=== PATIENT | female | born 1945 | race Caucasian/White ===

== ENCOUNTER 2017-01-31 20:01 | Emergency (ER) | payer OTHER ==
[2017-01-31 20:18] VITALS: BMI 41.0
--- NOTE | 2017-01-31 21:04 | PDOC ---
History of Present Illness - General History Source: Patient Exam Limitations: No Limitations - History of Present Illness Initial Comments: 01/31/17 21:52 The patient is a 71 year old female, with a significant past medical history of hypertension, hyperlipidemia, diabetes(diet controlled), and sleep apnea, who presents to the emergency department with dizziness since approximately 17:00. The patient reports she began to feel dizzy and describes it as if the room were spinning. The patient reports associated nausea and 2 episodes of vomiting( nonbloody/nonbilious). The patient reports her dizziness is exacerbated with movement or with standing. Patient states she was admitted to the hospital in the past with similar symptoms, where they discontinued her Amlodipine due to hypotension, but was started on her meds again several years ago. Patient endorses mild headache, located in her occipital scalp, which she describes as a pressure. She reports taking Tylenol for the pain with relief of symptoms, but now reports mild neck pain. Patient denies any head trauma, LOC, changes in vision, back pain, weakness, paresthesias, or changes in balance. She denies any chest pain, shortness of breath, diaphoresis, or palpitations. She denies any fever, chills, or joint aches. She denies any recent travel, stressors, or sick contacts. Allergies: NKDA Past Surgical History: Right knee replacement, Carpal tunnel Social History: Non smoker. No ETOH or recreational drug use. <Carlos León - Last Filed: 01/31/17 21:52> <Shena Root - Last Filed: 02/01/17 02:04> - General Chief Complaint: Lightheaded Stated Complaint: DIZZINESS Time Seen by Provider: 01/31/17 20:04 Past History <Carlos León - Last Filed: 01/31/17 21:52> - Past Medical History Anemia: No Asthma: No Cancer: No Cardiac Disorders: No CVA: No COPD: No CHF: No Dementia: No Diabetes: Yes (DIET CONNTROLLED) GI Disorders: No Disorders: No HTN: Yes Hypercholesterolemia: Yes Liver Disease: No Seizures: No Thyroid Disease: No - Surgical History Abdominal Surgery: No Appendectomy: No Cardiac Surgery: No Cholecystectomy: No Lung Surgery: No Neurologic Surgery: No Orthopedic Surgery: Yes (fred KNEE MOLINA) - Suicide/Smoking/Psychosocial Hx Smoking History: Never smoked Have you smoked in the past 12 months: No Information on smoking cessation initiated: No Hx Alcohol Use: No Drug/Substance Use Hx: No Substance Use Type: None Hx Substance Use Treatment: No <Shena Root - Last Filed: 02/01/17 02:04> - Past Medical History Allergies/Adverse Reactions: Allergies Allergy/AdvReac Type Severity Reaction Status Date / Time No Known Drug Allergies Allergy Mild Vomiting Verified 01/31/17 20:04 SHRIMP Allergy Intermediate Vomiting Uncoded 01/31/17 20:12 Home Medications: Ambulatory Orders Atorvastatin Ca [Lipitor] 20 mg PO HS 03/20/14 Amlodipine Besylate [Norvasc -] 5 mg PO DAILY 05/07/14 Furosemide [Lasix -] 20 mg PO BID 05/16/14 Meclizine HCl [Antivert -] 25 mg PO TID PRN #20 tablet 01/31/17 Review of Systems - Review of Systems Able to Perform ROS?: Yes Comments:: 01/31/17 21:52 CONSTITUTIONAL: Absent: fever, no chills, no fatigue EYES: Absent: visual changes ENT: Absent: ear pain, no sore throat CARDIOVASCULAR: Absent: chest pain, no palpitations RESPIRATORY: Absent: cough, no SOB GI: Absent: abdominal pain, no nausea, no vomiting, no constipation, no diarrhea GENITOURINARY: Absent: dysuria, no frequency, no hematuria MUSKULOSKELETAL: Absent: back pain, no arthralgia, no myalgia SKIN: Absent: rash NEURO: Present: headache, dizziness, vertigo Absent: lightheadedness, focal weakness or paresthesias, unsteady gait, seizure , mental status changes, bladder or bowel incontinence <Carlos León - Last Filed: 01/31/17 21:52> *Physical Exam - Vital Signs Last Vital Signs Temp Pulse Resp BP Pulse Ox 97.8 F 86 20 143/64 99 01/31/17 20:02 01/31/17 20:02 01/31/17 20:02 01/31/17 20:02 01/31/17 20:02 - Physical Exam Comments: 01/31/17 21:53 GENERAL: The patient is awake, alert, and fully oriented, in no acute distress. HEAD: Normal with no signs of trauma. EYES: Pupils equal, round and reactive to light, extraocular movements intact, sclera anicteric, conjunctiva clear with no pallor. No nystagmus. ENT: Ears normal, nares patent, oropharynx clear without exudates. Moist mucous membranes. NECK: Normal range of motion, supple without lymphadenopathy, JVD, or masses. LUNGS: Breath sounds equal, clear to auscultation bilaterally. No wheeze/ crackles. HEART: Regular rate and rhythm, normal S1 and S2 without murmur or rub. ABDOMEN: Soft/nontender/nondistended. BS wnl. No guarding or rebound. No palpable masses. No hepatosplenomegaly. EXTREMITIES: Normal range of motion, no edema. No clubbing or cyanosis. No cords, erythema, or tenderness. NEUROLOGICAL: Subjective vertigo was induced by change from supine to upright position. Cranial nerves II through XII grossly intact. Normal speech. PSYCH: Normal mood, normal affect. SKIN: Warm, Dry, normal turgor, no rashes or lesions noted. <Carlos León - Last Filed: 01/31/17 21:52> - Vital Signs Last Vital Signs Temp Pulse Resp BP Pulse Ox 97.8 F 86 20 143/64 99 01/31/17 20:02 01/31/17 20:02 01/31/17 20:02 01/31/17 20:02 01/31/17 20:02 <Shena Root - Last Filed: 02/01/17 02:04> ED Treatment Course - LABORATORY CBC & Chemistry Diagram: 01/31/17 22:12 01/31/17 22:12 <Shena Root - Last Filed: 02/01/17 02:04> Medical Decision Making - Medical Decision Making Documentation has been prepared under my direction and personally reviewed by me in its entirety. I attest that this documented accurately reflects all work, treatment, procedures and medical decision making performed by me. As noted above, this 71-year-old woman (history of DM/HTN/HLD) presents with "dizziness" with change in position, accompanied by nausea and 2 episodes of vomiting today. Last night, she had headache/pressure feeling in the occipital area of her head. Pain resolved after 2 hours. No further headache noted today. Patient has a previous history of the dizziness a few years ago ( [facility] No previous history of positional vertigo. Patient had recent viral illness (sore throat and nonproductive cough; now resolved) Exam as noted. Patient had reproduction of her symptoms when arising to upright position from a supine position. 12-lead electrocardiogram performed and interpreted by me: Normal sinus rhythm at 79 bpm; axis, intervals and wave forms are all normal. No evidence of acute ST or T-wave evident. No evidence of arrhythmia. Laboratory evaluation including cardiac enzymes showed no significant abnormality except for mild hypokalemia (3.3 mmol per liter) and relative prerenal azotemia with BUN of 14 and creatinine 0.7. Troponin is not elevated. Because of the patient's history of occipital headache and dizziness/vertigo with nausea and vomiting, noncontrast head CT was performed to evaluate for acute intracranial pathology. No evidence of acute intracranial pathology found on noncontrast head CT. Patient given meclizine 25 mg by mouth empirically. Prescription for 25 mg 3 times a day as needed (#20) transmitted to her pharmacy. Patient states that she will follow-up with her ENT doctor at [facility] tomorrow. Meanwhile, she should return to the ER if she has any worsening of her symptoms. <Shena Root - Last Filed: 02/01/17 02:04> *DC/Admit/Observation/Transfer - Attestations Scribe Attestion: 01/31/17 21:53 Documentation prepared by Carlos León, acting as medical equipment technician for Shena Root MD. <Carlos León - Last Filed: 01/31/17 21:52> <Shena Root - Last Filed: 02/01/17 02:04> Diagnosis at time of Disposition: Vertigo - Discharge Dispostion Disposition: HOME Condition at time of disposition: Stable - Prescriptions Prescriptions: Meclizine HCl [Antivert -] 25 mg PO TID PRN #20 tablet PRN Reason: Vertigo - Patient Instructions Printed Discharge Instructions: DI for Benign Paroxysmal Positional Vertigo Additional Instructions: Try to drink plenty of fluids Include high potassium foods in your diet as discussed continue medications as prescribed Follow-up with your ENT doctor tomorrow, especially if symptoms persist Return to ER if you have severe lightheadedness or weakness
[2017-01-31 22:26] LABS: BASOPHIL 0.3 % (0-2.0); EOSINOPHIL 1.9 % (0-4.5); MCH 28.3 pg (25.7-33.7); MCHC 32.2 g/dl (32.0-36.0); MEAN CELL VOLUME 88.1 fl (80-96); MEAN PLT VOLUME 10.2 fl (7.5-11.1); NEUTROPHILS 66.9 % (42.8-82.8); PLATELET COUNT 246 K/MM3 (134-434); RDW 12.5 % (11.6-15.6); WHITE BLOOD COUNT 10.6 K/mm3 (4.0-10.8)
[2017-01-31 22:33] LABS: INR 0.95 (0.82-1.09); PROTHROMBIN TIME (PATIENT) 10.6 SEC (10.2-13.0)
[2017-01-31 22:39] LABS: ALBUMIN 4.6 g/dl (3.5-5.0); ALK PHOS 76 U/L (32-92); ANION GAP 9 (8-16); BILIRUBIN,TOTAL 0.7 mg/dl (0.2-1.0); CALCIUM 9.6 mg/dl (8.4-10.2); CO2 29 mmol/L (22-28); CPK 87 IU/L (26-192); CREATININE 0.7 mg/dl (0.6-1.3); GLUCOSE,RANDOM 127 mg/dl (74-106); SGOT/AST 23 U/L (10-42); SGPT/ALT 18 U/L (10-40); TOT PROT 7.7 g/dl (6.4-8.3)
[2017-01-31 22:59] LABS: TROPONIN I (DFP) < 0.03 ng/ml (0.03-0.50)
[2017-01-31] MEDS ORDERED: MECLIZINE HCL 25 MG TABLET (FP) ONE (23:22)
[2017-01-31] MEDS ORDERED: MECLIZINE HCL 25 MG TABLET (FP) PO ONE (23:26)
[2017-01-31 23:33] VITALS: BP 145/86; PULSE 78; TEMP 97.6
--- NOTE | 2017-02-03 11:19 | EKG ---
Test Reason : Blood Pressure : / mmHG Vent. Rate : 079 BPM Atrial Rate : 079 BPM P-R Int : 174 ms QRS Dur : 100 ms QT Int : 418 ms P-R-T Axes : 052 006 041 degrees QTc Int : 479 ms NORMAL SINUS RHYTHM NORMAL ECG WHEN COMPARED WITH ECG OF 07-MAY-2014 09:19, NO SIGNIFICANT CHANGE WAS FOUND Confirmed by HEATHER RAUSCH MD ([id number]) on 02/03/2017 11:18:47 AM Referred By: MD GUILLORY Confirmed By:HEATHER RAUSCH MD
== END 2017-01-31 23:41 | disposition home or self-care (01) ==
LOC: FER 20:01
DX: R42 Dizziness and giddiness (principal); I10 Essential (primary) hypertension; E78.5 Hyperlipidemia, unspecified; G47.30 Sleep apnea, unspecified
CPT/HCPCS: 36415; 70450-TC; 80053; 82550; 84484; 85025; 85610; 93005; 99282-25

== ENCOUNTER 2017-08-03 13:34 | Emergency (ER) | payer OTHER ==
--- NOTE | 2017-08-03 14:20 | PDOC ---
History of Present Illness - General Chief Complaint: Hematuria Stated Complaint: BLOOD IN URINE Time Seen by Provider: 08/03/17 14:01 - History of Present Illness Initial Comments: 08/03/17 16:27 The patient is a 72 year old female with past medical history of HTN, hyperlipidemia, diabetes, hypercholesterolemia and sleep apnea presents to the emergency department complaining of hematuria since morning. The patient reports passing bright red urine in the morning accompanied with dysuria. The patient states the urine was concentrated with blood. The patient reports voiding at 1:00 PM then again prior to the ED visit states it becomes more diluted with each passing. The patient reports associated symptoms of lower back pain. Denies trauma. The patient reports a history of non productive cough for the past 1 month, without relief. The patient reports daily use Aspirin 81 mg. Denies any prior similar incident. Denies frequency or urgency to urinate. Denies fever, chills. Chest pain or headache. Denies Nausea, vomiting, diarrhea or constipation. Allergies: NKDA Surgical history: Carpal Tunnel and right knee replacement. Social history: None reported PCP: Dr. Trent Nelson Past History - Past Medical History Allergies/Adverse Reactions: Allergies Allergy/AdvReac Type Severity Reaction Status Date / Time No Known Drug Allergies Allergy Mild Vomiting Verified 08/03/17 13:35 shrimp Allergy Verified 08/03/17 16:48 Home Medications: Ambulatory Orders Atorvastatin Ca [Lipitor] 20 mg PO HS 03/20/14 Amlodipine Besylate [Norvasc -] 5 mg PO DAILY 05/07/14 Furosemide [Lasix -] 20 mg PO BID 05/16/14 Ergocalciferol [Vitamin D2] 50,000 unit PO Q7D@1000 08/03/17 Metformin HCl [Glucophage] 500 mg PO BID 08/03/17 Ranitidine [Zantac -] 150 mg PO DAILY 08/03/17 Anemia: No Asthma: No Cancer: No Cardiac Disorders: No CVA: No COPD: No CHF: No Dementia: No Diabetes: Yes (DIET CONNTROLLED) GI Disorders: No Disorders: No HTN: Yes Hypercholesterolemia: Yes Liver Disease: No Seizures: No Thyroid Disease: No - Surgical History Abdominal Surgery: No Appendectomy: No Cardiac Surgery: No Cholecystectomy: No Lung Surgery: No Neurologic Surgery: No Orthopedic Surgery: Yes (fred KNEE MOLINA) - Suicide/Smoking/Psychosocial Hx Smoking History: Never smoked Have you smoked in the past 12 months: No Hx Alcohol Use: No Drug/Substance Use Hx: No Substance Use Type: None Hx Substance Use Treatment: No Review of Systems - Review of Systems Comments:: 08/03/17 16:28 GENERAL/CONSTITUTIONAL: No fever or chills. No weakness. HEAD, EYES, EARS, NOSE AND THROAT: No change in vision. No ear pain or discharge. No sore throat. GASTROINTESTINAL: No nausea, vomiting, diarrhea or constipation. GENITOURINARY: (+) dysuria and hematuria. No, frequency or urgency to urinate. CARDIOVASCULAR: No chest pain or shortness of breath. RESPIRATORY: (+) cough for the past 1 month. No wheezing, or hemoptysis. MUSCULOSKELETAL:(+) Lower back pain. No joint or muscle swelling or pain. No neck. SKIN: No rash NEUROLOGIC: No headache, vertigo, loss of consciousness, or change in strength/ sensation. ENDOCRINE: No increased thirst. No abnormal weight change. HEMATOLOGIC/LYMPHATIC: No anemia, easy bleeding, or history of blood clots. ALLERGIC/IMMUNOLOGIC: No hives or skin allergy. *Physical Exam - Physical Exam Comments: 08/03/17 16:28 GENERAL: Awake, alert, and fully oriented, in no acute distress HEAD: No signs of trauma EYES: PERRLA, EOMI, sclera anicteric, conjunctiva clear ENT: Auricles normal inspection, hearing grossly normal, nares patent, oropharynx clear without exudates. Moist mucosa NECK: Normal ROM, supple, no lymphadenopathy, JVD, or masses LUNGS: Breath sounds equal, clear to auscultation bilaterally. No wheezes, and no crackles HEART: Regular rate and rhythm, normal S1 and S2, no murmurs, rubs or gallops ABDOMEN: (+) Superpubic tenderness to palpation. Soft, normoactive bowel sounds. No guarding, no rebound. No masses or CVA tenderness. EXTREMITIES: Normal range of motion, no edema. No clubbing or cyanosis. No cords, erythema, or tenderness BACK: No midline spinal tenderness in cervical/thoracic/lumbar region NEUROLOGICAL: Normal speech, cranial nerves intact, negative pronator drift, 5/ 5 strength in all 4 extremities, normal sensation to light touch in all 4 extremities, normal cerebellar exam, normal gait, normal reflexes and tone SKIN: Warm, Dry, normal turgor, no rashes or lesions noted. ED Treatment Course - LABORATORY CBC & Chemistry Diagram: 08/03/17 16:00 08/03/17 16:00 Medical Decision Making - Medical Decision Making 08/03/17 14:15 72yo F hx HTN, HL, NIDDM, on ASA 81mg presents to the ED c/o hematuria and dysuria since this morning. Also reports suprapubic and low back pain. Vitals wnl. Will check UA and reassess 08/03/17 16:28 UA with many res, 2+LE, many whites and bacteria. Case discussed with her PMD Dr. Nelson, he recommends labs, US, and obs admission given hematuria. Will obtain work up and reassess pt. 08/03/17 17:38 US with mild R hydro, possible stone? Pt states urine completely clear now. CTAP ordered K found to be 2.8, given 80meq PO KCl, will repeat 08/03/17 18:35 CTAP with no renal colic, hydro or acute abd/pelvic pathology. Pt offered admission for hypokalemia, and hematuria, however, she does not want to stay overnight as she has a new grandson and her son is having surgery. The patient is clinically sober, free from distracting injury, appears to have intact insight and judgment and reason and in my opinion has the capacity to make decisions. I explained to her that her potassium was low to 2.8 and we would need to repeat the labs to see if it has improved with Kdur but she declines rpt labs. I explained to her that hypokalemia can cause abnormal heart rhythms, loss of consiousness, disability, or even . She expresses understanding of my concerns and will f/u with Dr. Leslie MILNER. She also states she will eat more banana's and avocado. I also re-iterated that Dr. Nelson wanted her admitted for her hematuria, but she states she has made an appointment with urologist Curry Cummins tomorrow for f/u. I will treat her UTI with keflex. I have told the patient that her hematuria could be a sign of infection, or something more scary like cancer but she prefers to follow up with her specialist tomorrow. I have discussed these concerns with the patient s granddaughter who is at the bedside and she is unable to convince her to stay for further evaluation. She is unwilling to stay overnight for monitoring. She is refusing any further care and is leaving against medical advice. I am unable to convince the patient to stay, I have asked her to return as soon as possible to complete their evaluation. I have spoken with coverage for their primary care doctor in regards to their workup. I have answered all their questions. *DC/Admit/Observation/Transfer Diagnosis at time of Disposition: UTI (urinary tract infection), Hematuria, Hypokalemia - Discharge Dispostion Disposition: AGAINST MEDICAL ADVICE Condition at time of disposition: Stable Decision to Admit order: No - Referrals Referrals: Trent Nelson MD [Primary Care Provider] - - Patient Instructions Printed Discharge Instructions: DI for Hypokalemia, DI for Hematuria, DI for Urinary Tract Infection (UTI) Additional Instructions: You are leaving the hospital against medical advice. This puts you at risk for abnormal heart rhythm, recurrent bloody urine, permanent disability, or . Your potassium was very low and will need to be rechecked as soon as possible. Furthermore, we do not know why you were had the blood in the urine. While it looks like you have an infection, Dr. Nelson and myself recommended an overnight stay to make sure the blood in the urine was not a sign of something worse. Follow up with Dr. Nelson as soon as possible. Return as soon as possible to complete your evaluation. - Post Discharge Activity - Attestations Physician Attestion: 08/03/17 18:47 I, Dr. Keith Alejandro MD, attest that this document has been prepared under my direction and personally reviewed by me in its entirety. I further attest, that it accurately reflects all work, treatment, procedures and medical decision -making performed by me.
[2017-08-03 14:21] VITALS: TEMP 98.4; BMI 34.7
[2017-08-03 14:33] LABS: PH,URINE 5.5 (4.5-8); URINE BILIRUBIN Negative (NEGATIVE); URINE GLUCOSE (UA) Negative (NEGATIVE); URINE KETONE Negative (NEGATIVE); URINE NITRITE Negative (NEGATIVE); URINE UROBILINOGEN 0.2 (0.2-1.0)
[2017-08-03 14:34] LABS: URINE APPEARANCE CLOUDY; URINE BLOOD 3+ (NEGATIVE); URINE COLOR PINK; URINE LEUK ESTERASE 2+ (NEGATIVE); URINE PROTEIN 2+ (NEGATIVE)
[2017-08-03 14:44] LABS: URINE RBC >100 /hpf (0-3)
[2017-08-03 14:45] LABS: EPI CELLS MODERATE /HPF; URINE BACTERIA MANY /hpf (NEGATIVE); URINE WBC 30-50 (0-5)
[2017-08-03 16:20] LABS: BASO % 0.3 % (0-2.0); EOS % 2.2 % (0-4.5); HEMATOCRIT 35.2 % (32.4-45.2); HEMOGLOBIN 12.2 GM/dl (10.7-15.3); LYMPH % 24.3 % (8-40); MCH 30.7 pg (25.7-33.7); MCHC 34.6 g/dl (32.0-36.0); MEAN CELL VOLUME 88.8 fl (80-96); MEAN PLT VOLUME 8.9 fl (7.5-11.1); MONO % 5.6 % (3.8-10.2); NEUT % 67.6 % (42.8-82.8); PLATELET COUNT 267 K/MM3 (134-434); RBC 3.96 M/mm3 (3.60-5.2); WHITE BLOOD COUNT 10.6 K/mm3 (4.0-10.8)
[2017-08-03 16:33] LABS: ALBUMIN 4.1 g/dl (3.5-5.0); ALK PHOS 54 U/L (32-92); ANION GAP 6 (8-16); BILIRUBIN,TOTAL 0.6 mg/dl (0.2-1.0); BLOOD UREA NITROGEN 13 mg/dl (7-18); CALCIUM 9.1 mg/dl (8.4-10.2); CHLORIDE 99 mmol/L (98-107); CO2 28 mmol/L (22-28); GLUCOSE,RANDOM 116 mg/dl (74-106); SGOT/AST 32 U/L (10-42); SGPT/ALT 19 U/L (10-40); SODIUM 133 mmol/L (136-145); TOT PROT 6.8 g/dl (6.4-8.3)
[2017-08-03 16:35] LABS: CREATININE < 0.8 mg/dl (0.6-1.3)
[2017-08-03 16:36] LABS: POTASSIUM 2.7 mmol/L (3.5-5.1)
[2017-08-03] MEDS ORDERED: POTASSIUM CHLORIDE ORAL LIQUID 20 MEQ/15 ML PO ONE (16:42)
[2017-08-03] MEDS ORDERED: POTASSIUM CHLORIDE ORAL LIQUID 20 MEQ/15 ML ONE (16:43)
[2017-08-03 18:43] VITALS: BP 155/89; PULSE 89
[2017-08-03] MEDS ORDERED: CEPHALEXIN MONOHYDRATE 500 MG CAPSULE (UD) ONE (18:45)
[2017-08-03] MEDS ORDERED: CEPHALEXIN MONOHYDRATE 500 MG CAPSULE (UD) PO ONE (18:48)
== END 2017-08-03 18:50 | disposition left against medical advice (07) ==
LOC: FER 13:34
DX: N39.0 Urinary tract infection, site not specified (principal); R31.9 Hematuria, unspecified; E87.6 Hypokalemia
CPT/HCPCS: 36415; 74176-TC; 76775-TC; 80053; 81003; 81015; 85025; 87086; 87186; 99283-25

== ENCOUNTER 2017-09-14 10:57 | Day surgery (SDC) | payer OTHER ==
[2017-09-13 17:23] VITALS: BMI 35.9
[2017-09-14] MEDS ORDERED: LIDOCAINE HCL 1%, 10 MG/ML (20ML VIAL) ONE (12:42)
[2017-09-14] MEDS ORDERED: BUPIVACAINE HCL/PF 0.5% (5MG/ML) 10 ML VIAL ONE (12:42)
[2017-09-14] MEDS ORDERED: MIDAZOLAM HCL 2 MG/2 ML SINGLE DOSE VIAL ONE (12:47)
[2017-09-14] MEDS ORDERED: PROPOFOL 20 ML ONE (12:47)
[2017-09-14] MEDS ORDERED: ceFAZolin SODIUM 1 GM VIAL ONE (13:08)
[2017-09-14] MEDS ORDERED: LIDOCAINE HCL 1%, 10 MG/ML (20ML VIAL) INF ONE (13:17)
[2017-09-14] MEDS ORDERED: BUPIVACAINE HCL/PF (5 MG/ML) 30 ML VIAL IJ ONE (13:17)
--- NOTE | 2017-09-14 13:42 | OP ---
Operative Note - Note: Operative Date: 09/14/17 Pre-Operative Diagnosis: soft tissue mass LLE Operation: excision soft tissue mass LLE Findings: soft tissue mass ~ 4 cm. x 3 x 2 ; ? fat necrosis vs. other Surgeon: Ray Mary Compliance Coordinator: Attila Douglas Anesthesiologist/MACHINE SEWER: Gamaliel Thrasher Anesthesia: Local Specimens Removed: mass Estimated Blood Loss (mls): 5
[2017-09-14] MEDS ORDERED: ACETAMINOPHEN 325 MG TABLET (FP) PO PRN (13:56)
[2017-09-14] MEDS ORDERED: ONDANSETRON 4 MG/2 ML VIAL IVPUSH PRN (13:56)
--- NOTE | 2017-09-14 13:56 | SURG ---
Surgery Rehab Office Coordinator Note Rehab Office Coordinator: Attila Douglas PA-C Date of Service: 09/14/17 Diagnosis: Left leg soft tissue mass Procedure: Excision of Left leg mass I was present for the entirety of the operative procedure. For further detail, please refer to operative report.
[2017-09-14] MEDS ORDERED: LACTATED RINGERS SOLUTION 1,000 ML IV SCH (14:00)
[2017-09-14 14:32] VITALS: TEMP 98.5
[2017-09-14 16:33] VITALS: BP 122/64; PULSE 63
--- NOTE | 2017-09-15 11:50 | OP ---
DATE OF OPERATION: 09/14/2017 PREOPERATIVE DIAGNOSIS: Soft tissue mass, left lower extremity, pending final diagnosis. POSTOPERATIVE DIAGNOSIS: Soft tissue mass, left lower extremity, pending final diagnosis. PROCEDURE: Excision soft tissue mass, left lower extremity. SURGEON: Ray Mary MD PHARMACY DIRECTOR: Attila Douglas PA-C ANESTHESIA: Local with IV sedation. OPERATIVE FINDINGS: There was a soft tissue mass over the mid tibia measuring approximately 4 x 3 x 2 cm. It was well delineated and firm and partially cystic. It was attached to the anterior fascia of the tibia and the rest of the findings were unremarkable. DESCRIPTION OF PROCEDURE: The patient was placed on the operating table in the supine position, and the left lower extremity was prepped with ChloraPrep and draped in sterile fashion. A time-out was taken. An incision was mapped out over the mass, and the area was infiltrated with 1% Xylocaine and 0.5% Marcaine in equal concentration. An incision was made with a scalpel and taken down through skin and subcutaneous tissue, and the mass identified. Using blunt and sharp dissection, the mass was mobilized circumferentially. Its deep attachment to the anterior tibial fascia was identified, clamped, and divided, and the mass sent for pathological examination. The pedicle was ligated with 2- 0 Vicryl suture. Irrigation was carried out, and hemostasis secured with electrocautery. The wound was then closed in layers reapproximating the defect in the anterior tibial fascia with interrupted 2-0 Vicryl, the deep dermis with interrupted 3-0 Vicryl, and the skin edges with 4-0 nylon vertical mattress sutures. Dry sterile dressings, a Jono, and an SHELLY bandage were placed, and the procedure terminated at this point, and the patient transferred to the post-anesthesia care unit in stable condition, awake and alert. ESTIMATED BLOOD LOSS: Minimal. DRAINS: None. SPECIMENS: Soft tissue mass to Pathology. I, Ray Mary, was physically present in the operating room from the time the patient was placed on the operating table until she was transferred to the post-anesthesia care unit in my accompaniment. MD RAY Kent/[id number] MTDD
--- NOTE | 2017-09-18 17:27 | PATH ---
Surgical Pathology Report Patient Name: KOKI WHITMORE [facility]. Rec. #: [id number] /Age/Gender: 1945 (Age: 72) / F Account: [id number] Location: [facility] Taken: 09/14/2017 Received: 09/15/2017 Reported: 09/18/2017 Physicians: Ray Mary MD Specimen(s) Received SOFT TISSUE MASS Clinical History Soft tissue mass left lower leg post trauma by history Final Diagnosis LOWER LEG, LEFT, SOFT TISSUE MASS, EXCISION: ORGANIZED FAT NECROSIS WITH ASSOCIATED DYSTROPHIC CALCIFICATION. Electronically Signed Rosaura Cunningham M.D. Gross Description Received in formalin labeled "soft tissue mass left lower leg," is a 4.3 x 2.6 x 1.2 cm payne-yellow, unoriented portion of firm fibroadipose tissue. The specimen is inked blue and serially sectioned. Sectioning reveals diffuse fat necrosis. Coordinate Measuring Machine Operator sections are submitted in 2 cassettes. /09/15/2017 saudi/09/15/2017
== END 2017-09-14 16:00 | disposition home or self-care (01) ==
LOC: JASU-SURG 10:57
PROVIDERS: ATTEND Surgery
PROC: 0JBP0ZZ Excision of Left Lower Leg Subcutaneous Tissue and Fascia, Open Approach (ICD-10-PCS; principal; 2017-09-14 12:30)
DX: D21.22 Benign neoplasm of connective and other soft tissue of left lower limb, including hip (principal); E11.9 Type 2 diabetes mellitus without complications; Z79.84 Long term (current) use of oral hypoglycemic drugs; I10 Essential (primary) hypertension
CPT/HCPCS: 82962; 88305-TC; 94760

== ENCOUNTER 2018-01-25 12:43 | Day surgery (SDC) | payer OTHER ==
[2018-01-23 13:52] VITALS: BMI 36.8
[2018-01-25] MEDS ORDERED: VASOPRESSIN 20 UNITS/ML VIAL IV ONE (12:53)
[2018-01-25] MEDS ORDERED: PROPOFOL 20 ML ONE (14:14)
[2018-01-25] MEDS ORDERED: MIDAZOLAM HCL 2 MG/2 ML SINGLE DOSE VIAL ONE (14:14)
[2018-01-25] MEDS ORDERED: LIDOCAINE HCL/PF 2% SDV 5ML VIAL ONE (14:15)
[2018-01-25] MEDS ORDERED: ceFAZolin SODIUM 1 GM VIAL ONE (14:21)
[2018-01-25] MEDS ORDERED: SODIUM CHLORIDE 0.9% P/F 10 ML VIAL IJ ONE (14:21)
--- NOTE | 2018-01-25 14:26 | HP ---
Satellite [facility] - Chief Complaint Chief Complaint: stress incontinence, cystocele History of Present Illness: 72 year old woman with bladder prolapse and stress urinary incontinence History Source: Patient Limitations to Obtaining History: No Limitations - Past Medical History Allergies/Adverse Reactions: Allergies Allergy/AdvReac Type Severity Reaction Status Date / Time No Known Drug Allergies Allergy Mild Vomiting Verified 09/14/17 11:37 shrimp Allergy Verified 09/14/17 11:37 Cardiovascular: Yes: HTN Renal/: Yes: UTI Musculoskeletal: Yes: Osteoarthritis - Current Medications Current Medications: Home Medications Medication Instructions Recorded Atorvastatin Ca [Lipitor] 20 mg PO HS 03/20/14 Amlodipine Besylate [Norvasc -] 5 mg PO DAILY 05/07/14 Ergocalciferol [Vitamin D2] 50,000 unit PO Q7D@1000 08/03/17 Metformin HCl [Glucophage] 500 mg PO BID 08/03/17 Ranitidine [Zantac -] 150 mg PO BID 08/03/17 Aspirin [Aspirin EC] 81 mg PO DAILY 09/13/17 Ca/D3/Mag Ox/Zinc/Battery Technician/Pancho/Bor 1 each PO BID 09/13/17 [Calcium 600+D3 Plus Caplet] Lutz-3/Dha/Epa/Fish Oil [Fish Oil 1 each PO DAILY 09/13/17 500 mg Softgel] Satellite Physical Exam - Physical Examination Vital Signs: Vital Signs Period Temp Pulse Resp BP Sys/Tran Pulse Ox Last 24 Hr 97.6 F 67 20 115/70 100 General Appearance: Well Nourished, Well Developed, Alert & Oriented x3 ENT: Clear Lung: Clear to auscultation Heart: Regular rate & rhythm Abdomen: Soft, No tenderness, Normal bowel sounds Extremities: No edema, No tenderness/swelling Pelvic Exam: Other External Genitalia (cystocele and hypermobile urethra) Neurological: Intact Satellite Impression/Plan - Impression/Plan Impression: cystocele and stress urinary incontinence Operative Procedure: cystocele repair and suburethral sling placement Date to be Performed: 01/25/18
[2018-01-25] MEDS ORDERED: ACETAMINOPHEN 1000 MG/100 ML VIAL (NON FORMULARY) IVPB ONE (14:27)
[2018-01-25] MEDS ORDERED: ceFAZolin SODIUM 1 GM VIAL IVPB ONE (14:30)
[2018-01-25] MEDS ORDERED: DEXAMETHASONE SOD PHOSPHATE 4 MG/1 ML VIAL ONE (14:33)
[2018-01-25] MEDS ORDERED: KETOROLAC TROMETHAMINE 30 MG/1 ML VIAL ONE (15:10)
[2018-01-25] MEDS ORDERED: PROMETHAZINE HCL 25 MG/1 ML VIAL IVPB PRN (15:33)
[2018-01-25] MEDS ORDERED: ONDANSETRON 4 MG/2 ML VIAL IVPUSH PRN (15:33)
[2018-01-25] MEDS ORDERED: LACTATED RINGERS SOLUTION 1,000 ML IV SCH (15:45)
[2018-01-25] MEDS ORDERED: ACETAMINOPHEN INJECTION 100 ML IVPB ONE (16:38)
[2018-01-25] MEDS: DEXTROSE 5%-0.45% SALINE 1,000 ML IV SCH (18:15)
[2018-01-25] MEDS: IBUPROFEN 800 MG/8 ML IJ IVPB SCH (22:13)
[2018-01-26] MEDS ORDERED: ceFAZolin SODIUM 1 GM VIAL ONE ×2 (01:08→08:54)
[2018-01-26] MEDS ORDERED: DEXTROSE 5%-WATER - 50 ML IVPB ONE ×2 (01:08→08:54)
[2018-01-26] MEDS: CEFAZOLIN 1 GM in DEXTROSE 5%-WATER - 50 ML IVPB SCH ×2 (01:13→09:58)
[2018-01-26] MEDS: IBUPROFEN 800 MG/8 ML IJ IVPB SCH (05:54)
[2018-01-26] MEDS: DEXTROSE 5%-0.45% SALINE 1,000 ML IV SCH (05:55)
[2018-01-26 06:03] VITALS: TEMP 97.4
[2018-01-26 06:56] LABS: BASO % 0.1 % (0-2.0); HEMATOCRIT 34.1 % (32.4-45.2); HEMOGLOBIN 10.8 GM/dL (10.7-15.3); LYMPH % 15.5 % (8-40); MCH 28.3 pg (25.7-33.7); MCHC 31.6 g/dl (32.0-36.0); MEAN CELL VOLUME 89.5 fl (80-96); MEAN PLT VOLUME 10.3 fl (7.5-11.1); MONO % 3.7 % (3.8-10.2); NEUT % 80.7 % (42.8-82.8); PLATELET COUNT 205 K/MM3 (134-434); RBC 3.81 M/mm3 (3.60-5.2); RDW 13.3 % (11.6-15.6); WHITE BLOOD COUNT 13.4 K/mm3 (4.0-10.0)
[2018-01-26 07:22] LABS: ANION GAP 9 MMOL/L (8-16); BLOOD UREA NITROGEN 13 mg/dL (7-18); CALCIUM 8.4 mg/dL (8.5-10.1); CHLORIDE 106 mmol/L (98-107); CO2 27 mmol/L (21-32); CREATININE 0.5 mg/dL (0.55-1.3); GLUCOSE,RANDOM 130 mg/dL (74-106); POTASSIUM 3.5 mmol/L (3.5-5.1); SODIUM 141 mmol/L (136-145)
--- NOTE | 2018-01-26 09:22 | PN ---
Progress Note (short form) - Note Progress Note: patient without complaints. [place] and vaginal packing removed,. discharge home
[2018-01-26 11:43] VITALS: BP 106/57; PULSE 67
--- NOTE | 2018-01-29 17:53 | PATH ---
Surgical Pathology Report Patient Name: KOKI WHITMORE [facility]. Rec. #: [id number] /Age/Gender: 1945 (Age: 72) / F Account: [id number] Location: [facility] Taken: 01/25/2018 Received: 01/26/2018 Reported: 01/29/2018 Physicians: Tj Pitt M.D. Specimen(s) Received ANTERIOR VAGINAL MUCOSA Clinical History Cystocele, female stress incontinence Final Diagnosis ANTERIOR VAGINAL MUCOSA, EXCISION: VAGINAL SQUAMOUS MUCOSA WITHOUT SIGNIFICANT PATHOLOGIC FINDINGS. Electronically Signed Rosaura Cunningham M.D. Gross Description Received in formalin labeled "anterior vaginal mucosa," are 2 payne, irregular portions of soft tissue, consistent with vaginal mucosa. The specimens measure 3.7 x 1.4 x 0.5 cm and 4.5 x 1.0 x 0.3 cm. Personal Financial Counselor sections are submitted in one cassette. 01/26/2018 saudi01/26/2018
--- NOTE | 2018-02-01 23:11 | OP ---
DATE OF OPERATION: 01/25/2018 PREOPERATIVE DIAGNOSIS: Stress urinary incontinence and female cystocele. POSTOPERATIVE DIAGNOSIS: Stress urinary incontinence and female cystocele. PROCEDURE: Repair and suburethral sling placement cystoscopy. SURGEON: Tj Pitt M.D. ESTIMATED BLOOD LOSS: 50 mL. DRAINS: Greene catheter. PREOPERATIVE INDICATION: The patient suffers from a grade 4 cystocele and grade 4 cystocele and hypermobile urethra with stress urinary incontinence. She comes for repair. DESCRIPTION OF PROCEDURE: The patient is brought to the OR, placed on the table in the supine position, given general anesthesia and IV antibiotics, and placed in the modified lithotomy position. The groin was prepped and draped sterilely. Timeout was performed. A Greene catheter was placed. The vaginal mucosa overlying the bladder was identified. Pitressin was injected along the midline. Incision was made in the vaginal mucosa overlying the cystocele. The vaginal mucosa was sharply dissected off the perivesical tissues in a lateral fashion. The excess vaginal mucosa was then excised. Both ventral and lateral defects were prepared. Using 3-0 Vicryl suture, the pursestring was done in the midline of the bladder to raise up the central defect. 2-0 Vicryl suture was then used and brought the lateral tissue together to effect a repair of the defect. Three sutures were used for this repair. Cystoscopy was then performed. No evidence of bladder perforation was noted . The vaginal mucosa was then closed with 2-0 Vicryl suture as well. The sling was then performed. Pitressin was injected over the mid portion of the urethra. There was incision made over the portion of the urethra and the perivesical tissue was sharply dissected off the vaginal mucosa in the lateral fashion. The bladder was emptied again. Using trocars, the sling was placed. It was a mini sling placed into the right and left obturator canal. This was done with fingertip control. Cystoscopy was performed. There was no evidence of perforation. Again, the bilaterally. The sling was then tightened appropriately, lying flat over the midportion of the urethra without tension. The tightening suture was removed. The vaginal mucosa was then closed with 2-0 Vicryl suture. Packing and Greene catheter left in place. The patient was woken up. TJ PITT M.D. [id number]
== END 2018-01-26 14:01 | disposition home or self-care (01) ==
LOC: JASU-SURG 12:43 → J4S 18:45 → JASU-SURG 01-26 14:01
PROVIDERS: ATTEND Urology
PROC: 0TSD0ZZ Reposition Urethra, Open Approach (ICD-10-PCS; principal; 2018-01-25 14:00)
DX: N39.3 Stress incontinence (female) (male) (principal); N81.10 Cystocele, unspecified; Z79.84 Long term (current) use of oral hypoglycemic drugs; G47.30 Sleep apnea, unspecified
CPT/HCPCS: 57288; C1771; 36415; 80048; 82962; 85025; 88302-TC; 94760; J0131

== ENCOUNTER 2021-01-14 06:49 | Day surgery (SDC) | payer OTHER ==
[2021-01-14 07:55] VITALS: BMI 31.3
[2021-01-14] MEDS ORDERED: MIDAZOLAM HCL 2 MG/2 ML SINGLE DOSE VIAL ONE ×2 (08:51→10:45)
[2021-01-14] MEDS ORDERED: BUPIVACAINE HCL/PF 0.5% (5 MG/ML) 30 ML VIAL IJ ONE (08:51)
[2021-01-14] MEDS ORDERED: ROPIVACAINE HCL 0.5% 30ML VIAL ONE (08:52)
[2021-01-14] MEDS ORDERED: PROPOFOL 20 ML ONE (10:45)
[2021-01-14] MEDS ORDERED: DEXAMETHASONE SOD PHOSPHATE 4 MG/1 ML VIAL ONE (10:50)
[2021-01-14] MEDS ORDERED: ONDANSETRON 4 MG/2 ML VIAL ONE (10:50)
[2021-01-14] MEDS ORDERED: ceFAZolin SODIUM 1 GM VIAL ONE (10:51)
[2021-01-14 13:09] VITALS: TEMP 97.8
[2021-01-14 13:35] VITALS: BP 135/74; PULSE 72
== END 2021-01-14 13:37 | disposition home or self-care (01) ==
LOC: FASU 06:49
PROVIDERS: ATTEND Orthopaedic Surgery
PROC: 0LB50ZZ Excision of Right Lower Arm and Wrist Tendon, Open Approach (ICD-10-PCS; 2021-01-14)
PROC: 0LR Tendons, Replacement (ICD-10-PCS; 2021-01-14)
PROC: 0LU507Z Supplement Right Lower Arm and Wrist Tendon with Autologous Tissue Substitute, Open Approach (ICD-10-PCS; principal; 2021-01-14 11:00)
DX: M18.11 Unilateral primary osteoarthritis of first carpometacarpal joint, right hand (principal)
CPT/HCPCS: 73130-TC-RT-FY; 82962; 94760

== ENCOUNTER 2022-03-04 04:10 | Day surgery (SDC) | payer OTHER ==
[2022-02-25 16:53] VITALS: BMI 36.8
[~2022-03-04 04:10] MED LIST: BUPIVACAINE HCL/PF 0.75% 10 ML VIAL PNB ONE; LIDOCAINE 1% P/F 10 MG/ML VIAL INF ONE
[2022-03-04] MEDS ORDERED: LIDOCAINE HCL/PF 1% SDV 5ML VIAL ONE (07:14)
[2022-03-04] MEDS ORDERED: BUPIVACAINE HCL/PF 0.75% 10 ML VIAL ONE ×2 (07:14→11:09)
[2022-03-04] MEDS ORDERED: LIDOCAINE 1% P/F 10 MG/ML VIAL INF ONE ×2 (11:25)
[2022-03-04] MEDS ORDERED: BUPIVACAINE HCL/PF 0.75% 10 ML VIAL PNB ONE ×2 (11:25)
[2022-03-04 12:17] VITALS: BP 142/68; PULSE 66; RESP 18; TEMP 98.7
== END 2022-03-04 12:00 | disposition home or self-care (01) ==
LOC: JASU-SURG 04:10
PROVIDERS: ATTEND Pain Medicine Pain Medicine
PROC: BR16YZZ Fluoroscopy of Lumbar Facet Joint(s) using Other Contrast (ICD-10-PCS; 2022-03-04)
PROC: 3E0T3BZ Introduction of Anesthetic Agent into Peripheral Nerves and Plexi, Percutaneous Approach (ICD-10-PCS; principal; 2022-03-04 10:15)
DX: M47.816 Spondylosis without myelopathy or radiculopathy, lumbar region (principal)
CPT/HCPCS: 76000-TC-FY

== ENCOUNTER 2022-03-22 04:23 | Day surgery (SDC) | payer OTHER ==
[2022-03-21 09:22] VITALS: BMI 38.0
[~2022-03-22 04:23] MED LIST changes: +BUPIVACAINE HCL/PF 0.75% 10 ML VIAL NR ONE; -BUPIVACAINE HCL/PF 0.75% 10 ML VIAL PNB ONE
[2022-03-22] MEDS ORDERED: BUPIVACAINE HCL/PF 0.75% 10 ML VIAL ONE (07:28)
[2022-03-22] MEDS ORDERED: LIDOCAINE HCL/PF 1% SDV 5ML VIAL ONE (07:28)
[2022-03-22] MEDS ORDERED: LIDOCAINE 1% P/F 10 MG/ML VIAL INF ONE (11:00)
[2022-03-22] MEDS ORDERED: BUPIVACAINE HCL/PF 0.75% 10 ML VIAL NR ONE (11:02)
[2022-03-22 13:01] VITALS: BP 123/62; PULSE 64; RESP 18; TEMP 97.7
== END 2022-03-22 11:25 | disposition home or self-care (01) ==
LOC: JASU-SURG 04:23
PROVIDERS: ATTEND Pain Medicine Pain Medicine
PROC: BR16YZZ Fluoroscopy of Lumbar Facet Joint(s) using Other Contrast (ICD-10-PCS; 2022-03-22)
PROC: 3E0T3BZ Introduction of Anesthetic Agent into Peripheral Nerves and Plexi, Percutaneous Approach (ICD-10-PCS; principal; 2022-03-22 10:00)
DX: M47.816 Spondylosis without myelopathy or radiculopathy, lumbar region (principal)
CPT/HCPCS: 76000-TC-FY

== ENCOUNTER 2022-04-15 04:11 | Day surgery (SDC) | payer OTHER ==
[2022-04-13 10:27] VITALS: BMI 33.5
[~2022-04-15 04:11] MED LIST changes: +DEXAMETHASONE SOD PHOSPHATE 10 MG/1 ML VIAL IVPUSH ONE; -LIDOCAINE 1% P/F 10 MG/ML VIAL INF ONE; +LIDOCAINE HCL/PF 2% SDV 5ML VIAL INF ONE
[2022-04-15] MEDS ORDERED: LIDOCAINE HCL/PF 2% SDV 5ML VIAL ONE (07:35)
[2022-04-15] MEDS ORDERED: LIDOCAINE HCL/PF 1% SDV 5ML VIAL ONE (07:35)
[2022-04-15] MEDS ORDERED: BUPIVACAINE HCL/PF 0.5% (5MG/ML) 10 ML VIAL ONE (07:35)
[2022-04-15] MEDS ORDERED: BUPIVACAINE HCL/PF 0.75% 10 ML VIAL ONE (07:35)
[2022-04-15] MEDS ORDERED: LIDOCAINE HCL 1% PRESERVATIVE FREE - 30ML VIAL IJ ONE (08:57)
[2022-04-15] MEDS ORDERED: LIDOCAINE HCL/PF 2% SDV 5ML VIAL INF ONE (09:16)
[2022-04-15] MEDS ORDERED: BUPIVACAINE HCL/PF 0.75% 10 ML VIAL NR ONE (09:24)
[2022-04-15] MEDS ORDERED: DEXAMETHASONE SOD PHOSPHATE 10 MG/1 ML VIAL IVPUSH ONE (09:24)
[2022-04-15 09:58] VITALS: BP 148/72; PULSE 64; RESP 20; TEMP 98.4
== END 2022-04-15 10:15 | disposition home or self-care (01) ==
LOC: JASU-SURG 04:11
PROVIDERS: ATTEND Pain Medicine Pain Medicine
PROC: 005Y3ZZ Destruction of Lumbar Spinal Cord, Percutaneous Approach (ICD-10-PCS; principal; 2022-04-15 09:00)
DX: M47.816 Spondylosis without myelopathy or radiculopathy, lumbar region (principal)
CPT/HCPCS: 76000-TC-FY; J1100

== ENCOUNTER 2022-05-17 05:16 | Day surgery (SDC) | payer OTHER ==
[2022-05-13 09:30] VITALS: BMI 38.0
[2022-05-17 10:59] VITALS: RESP 18; TEMP 97.8
[2022-05-17] MEDS ORDERED: LIDOCAINE HCL/PF 2% SDV 5ML VIAL ONE (11:32)
[2022-05-17] MEDS ORDERED: BUPIVACAINE HCL/PF 0.75% 10 ML VIAL PNB ONE (11:52)
[2022-05-17] MEDS ORDERED: DEXAMETHASONE SOD PHOSPHATE 10 MG/1 ML VIAL IVPUSH ONE (11:52)
[2022-05-17] MEDS ORDERED: LIDOCAINE 1% P/F 10 MG/ML VIAL PNB ONE (11:52)
[2022-05-17] MEDS ORDERED: LIDOCAINE HCL/PF 2% SDV 5ML VIAL PNB ONE (11:52)
[2022-05-17 13:22] VITALS: BP 135/69; PULSE 69
== END 2022-05-17 12:35 | disposition home or self-care (01) ==
LOC: JASU-SURG 05:16
PROVIDERS: ATTEND Pain Medicine Pain Medicine
PROC: 015B3ZZ Destruction of Lumbar Nerve, Percutaneous Approach (ICD-10-PCS; principal; 2022-05-17 12:00)
DX: M47.816 Spondylosis without myelopathy or radiculopathy, lumbar region (principal)
CPT/HCPCS: 76000-TC-FY; J1100

== ENCOUNTER → 2022-07-05 | Day surgery (SDC) | payer OTHER ==
[2022-07-01 15:34] VITALS: BMI 38.0
[~2022-07-05] MED LIST changes: +ACETAMINOPHEN 500 MG TABLET (FP) PO PRN; -BUPIVACAINE HCL/PF 0.75% 10 ML VIAL NR ONE; +DEXAMETHASONE SOD PHOSPHATE 10 MG/1 ML VIAL IM ONE; -DEXAMETHASONE SOD PHOSPHATE 10 MG/1 ML VIAL IVPUSH ONE; +DEXAMETHASONE SOD PHOSPHATE 10 MG/1 ML VIAL ONE; +DEXAMETHASONE SOD PHOSPHATE 4 MG/1 ML VIAL ONE; +IOHEXOL 180 MG/1 ML ML IJ ONE; +LIDOCAINE HCL 1% PRESERVATIVE FREE - 30ML VIAL IJ ONE; +LIDOCAINE HCL/PF 1% SDV 5ML VIAL ONE; -LIDOCAINE HCL/PF 2% SDV 5ML VIAL INF ONE
[2022-07-05 11:14] VITALS: TEMP 97.8
[2022-07-05 14:14] VITALS: BP 128/72; PULSE 68; RESP 17
== END | disposition home or self-care (01) ==
LOC: JASU-SURG 03:47
PROVIDERS: ATTEND Pain Medicine Pain Medicine
PROC: 3E0R3BZ Introduction of Anesthetic Agent into Spinal Canal, Percutaneous Approach (ICD-10-PCS; 2022-07-05)
PROC: 3E0R33Z Introduction of Anti-inflammatory into Spinal Canal, Percutaneous Approach (ICD-10-PCS; principal; 2022-07-05 12:45)
DX: M48.061 Spinal stenosis, lumbar region without neurogenic claudication (principal)
CPT/HCPCS: 76000-TC-FY; J1100

== ENCOUNTER 2022-11-08 05:24 | Day surgery (SDC) | payer OTHER ==
[2022-11-07 12:31] VITALS: BMI 42.8
[2022-11-08] MEDS ORDERED: LIDOCAINE HCL/PF 2% SDV 5ML VIAL ONE (07:21)
[2022-11-08] MEDS ORDERED: LIDOCAINE 1% P/F 10 MG/ML VIAL INF ONE (09:12)
[2022-11-08] MEDS ORDERED: IOHEXOL 180 MG/1 ML ML IJ ONE (09:14)
[2022-11-08] MEDS ORDERED: DEXAMETHASONE SOD PHOSPHATE 20 MG/5 ML VIAL IM ONE (09:14)
[2022-11-08 10:18] VITALS: BP 122/70; PULSE 66; RESP 20; TEMP 97.9
== END 2022-11-08 10:15 | disposition home or self-care (01) ==
LOC: JASU-SURG 05:24
PROVIDERS: ATTEND Pain Medicine Pain Medicine
PROC: 3E0R3BZ Introduction of Anesthetic Agent into Spinal Canal, Percutaneous Approach (ICD-10-PCS; 2022-11-08)
PROC: 3E0R33Z Introduction of Anti-inflammatory into Spinal Canal, Percutaneous Approach (ICD-10-PCS; principal; 2022-11-08 09:15)
DX: M48.061 Spinal stenosis, lumbar region without neurogenic claudication (principal); M54.16 Radiculopathy, lumbar region
CPT/HCPCS: 76000-TC-FY

== ENCOUNTER 2023-06-27 04:28 | Day surgery (SDC) | payer OTHER ==
[2023-06-22 12:10] VITALS: BMI 42.9
[2023-06-27 06:21] VITALS: RESP 18
[2023-06-27] MEDS ORDERED: LIDOCAINE HCL/PF 2% SDV 5ML VIAL ONE (07:03)
[2023-06-27] MEDS ORDERED: LIDOCAINE HCL/PF 1% SDV 5ML VIAL ONE (07:07)
[2023-06-27] MEDS ORDERED: DEXAMETHASONE SOD PHOSPHATE 10 MG/1 ML VIAL ONE (07:08)
[2023-06-27] MEDS: LIDOCAINE 1% P/F 10 MG/ML VIAL INF ONE (09:18)
[2023-06-27] MEDS: DEXAMETHASONE SOD PHOSPHATE 20 MG/5 ML VIAL IM ONE (09:19)
[2023-06-27] MEDS: IOHEXOL 180 MG/1 ML ML IJ ONE (09:19)
[2023-06-27] MEDS ORDERED: ACETAMINOPHEN 500 MG TABLET (FP) PO PRN (09:40)
[2023-06-27 09:41] VITALS: BP 150/70; PULSE 64; TEMP 97.4
== END 2023-06-27 09:41 | disposition home or self-care (01) ==
LOC: JASU-SURG 04:28
PROVIDERS: ATTEND Pain Medicine Pain Medicine
PROC: 3E0R3BZ Introduction of Anesthetic Agent into Spinal Canal, Percutaneous Approach (ICD-10-PCS; 2023-06-27)
PROC: 3E0R33Z Introduction of Anti-inflammatory into Spinal Canal, Percutaneous Approach (ICD-10-PCS; principal; 2023-06-27 08:15)
DX: M48.061 Spinal stenosis, lumbar region without neurogenic claudication (principal); M54.16 Radiculopathy, lumbar region
CPT/HCPCS: 76000-TC-FY; J1100

== ENCOUNTER 2024-05-24 06:15 | Day surgery (SDC) | payer OTHER ==
[2024-05-21 10:18] VITALS: BMI 38.9
[2024-05-24 07:49] VITALS: RESP 16
[2024-05-24] MEDS: BUPIVACAINE HCL/PF 0.5% (5MG/ML) 10 ML VIAL IJ ONE (09:27)
[2024-05-24] MEDS: LIDOCAINE HCL 1% PRESERVATIVE FREE - 30ML VIAL IJ ONE (09:48)
[2024-05-24] MEDS: IOHEXOL 180 MG/1 ML ML IJ ONE (09:49)
[2024-05-24] MEDS: DEXAMETHASONE SOD PHOSPHATE 10 MG/1 ML VIAL IM ONE (09:50)
[2024-05-24 10:07] VITALS: BP 133/58; PULSE 66; TEMP 97.8
[2024-05-24] MEDS ORDERED: ACETAMINOPHEN 500 MG TABLET (FP) PO PRN (21:28)
== END 2024-05-24 10:13 | disposition home or self-care (01) ==
LOC: JASU-SURG 06:15
PROVIDERS: ATTEND Pain Medicine Pain Medicine
PROC: 3E0R3BZ Introduction of Anesthetic Agent into Spinal Canal, Percutaneous Approach (ICD-10-PCS; 2024-05-24)
PROC: 3E0R33Z Introduction of Anti-inflammatory into Spinal Canal, Percutaneous Approach (ICD-10-PCS; principal; 2024-05-24 09:15)
DX: M54.16 Radiculopathy, lumbar region (principal)
CPT/HCPCS: 76000-TC-FY; J1100